=== PATIENT | male | born 1985 | race American Indian/Alaskan Native ===

== ENCOUNTER 2021-07-08 10:12 | Emergency (ER) | payer OTHER ==
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
[2021-07-08 12:05] VITALS: BP 124/78
== END 2021-07-08 11:57 | disposition home or self-care (01) ==
LOC: ED 10:12
DX: M79.18 Myalgia, other site (principal); V43.52XA Car driver injured in collision with other type car in traffic accident, initial encounter; Y93.89 Activity, other specified; Y92.89 Other specified places as the place of occurrence of the external cause; Y99.8 Other external cause status
CPT/HCPCS: 99282